=== PATIENT | male | born 1970 | race Caucasian/White ===

== ENCOUNTER 2017-05-10 00:04 | Emergency (ER) | payer OTHER ==
[2017-05-10 00:07] VITALS: BP 203/108; PULSE 75; RESP 16; TEMP 98.3; O2SAT 95
[2017-05-10] MEDS ORDERED: DEXAMETHASONE SOD PHOS 4 MG/ML VIAL IM ONE (01:45)
--- NOTE | 2017-05-10 01:47 | PD ---
HPI Chief Complaint: Injury Time Seen by Provider: 01:41 Travel History International Travel<30 days: No Contact w/Intl Traveler<30days: No Traveled to known affect area: No History of Present Illness HPI Patient comes in complaining of pain is left shoulder is been constant over the past 4 days and has moved into his left elbow and left wrist. Patient denies any trauma. Patient states pain began when he rolled over and turned his head to the left. Patient did take an Advil with minimal relief of symptoms. Pain is worse with certain movement of his left upper extremity. Denies any chest pain, shortness of breath, fevers, neck pain, back pain, numbness or tingling, loss change in bowel or bladder, trauma, or IV drug use. Describes pain as a burning like sensation in his joints. PFSH Past Medical History Medical History: Denies Significant Hx Diminished Hearing: No Past Surgical History Surgical History: No Previous Surgery Social History Alcohol Use: No Tobacco Use: Yes (1/2PPD ) Substance Use: No Allergies-Medications (Allergen,Severity, Reaction): Coded Allergies: No Known Allergies (Unverified , 05/10/17) Reported Meds & Prescriptions Reported Meds & Active Scripts Active Flexeril (Cyclobenzaprine HCl) 10 Mg Tab 10 Mg PO Q8HR PRN Do not drive or operate heavy machinery as medication can make you drowsy. Do not drink alcohol while on medication. Medrol Dosepak (Methylprednisolone) 4 Mg Dspk 4 Mg PO DIRECTED Per Pharmacist direction Review of Systems Except as stated in HPI: all other systems reviewed are Neg Physical Exam Narrative GENERAL: Well-developed, overly nourished, in no acute distress, and non-ill appearing. SKIN: Focused skin assessment warm and dry. HEAD: Atraumatic. Normocephalic. EYES: Pupils equal and round. EOMI. No scleral icterus. No injection or drainage. ENT: No nasal bleeding or discharge. Mucous membranes pink and moist. NECK: Trachea midline. Supple. No nuclear rigidity. CARDIOVASCULAR: Radial pulses 2+, intact, and equal bilaterally. Capillary refill less than 2 seconds. RESPIRATORY: No accessory muscle use. No respiratory distress. MUSCULOSKELETAL: No obvious deformities. No clubbing. No cyanosis. No edema. Full range of motion. Shoulder:FROM equal BL with passive flexion, extension, Abduction, Adduction, internal/external rotation, and pronation/supination. Sensation equal BL deltoid muscles. Pulses equal BL distal to injury. Capillary refill less than 2 seconds distal to injury and equal BL. FROM distal to injury and equal BL. Strength distal to injury equal BL. NV intact distal to injury equal BL. Flexion and extension of thumb equal BL. Equal strength and movement with abduction/adductions of BL fingers. Assessment Nurse strength equal BL. Negative Tinel and Phalen's test. Patient reports point tenderness over left anterior shoulder. NEUROLOGICAL: Awake and alert. No obvious cranial nerve deficits. Motor grossly within normal limits. Normal speech. PSYCHIATRIC: Appropriate mood and affect; insight and judgment normal. Data Data Last Documented VS Vital Signs Date Time Temp Pulse Resp B/P Pulse Ox O2 Delivery O2 Flow Rate FiO2 05/10/17 02:05 102 16 168/104 99 Room Air 05/10/17 00:07 98.3 Orders Dexamethasone Inj (Decadron Inj) (05/10/17 01:45) MDM Medical Decision Making Medical Screen Exam Complete: Yes Emergency Medical Condition: Yes Differential Diagnosis Radiculopathy, arthritis, fracture, strain, contusion, other Narrative Course There was no history of recent fall or trauma. There was no evidence to support atypical cardiac/angina as an etiology. There is also no evidence to suggest vascular pathology such as TAA or carotid dissection. No fevers or other evidence to suspect infectious processes, abscess, osteomyelitis etc. The patients neurological exam is normal with normal motor and sensory. There is no motor deficits reported or found, and no bowel or bladder incontinence or retention. I suspect the pain is mechanical in nature. Clinical suspicion, plan of care and management was discussed with the patient. The patient was instructed to follow up with their health care provider. The patient was also instructed to return if the pain worsened, changed, or developed weakness or bowel or bladder trouble. The patient agreed with plan. The patient was found during their evaluation to have elevated blood pressures. The patient has no prior history of hypertension. The patient has no symptoms as well. The patient denied headache, changes in vision, nausea, vomiting, dizziness, weakness or loss of sensation. The patient denied and chest, back or abdominal pain. The patient also denied any shortness of breath, dyspnea on exertion, orthopnea or PND. The patient denies any edema to extremities. The patients blood pressures at discharge were at an acceptable level. I discussed with the patient that the standard of care is to not initiate antihypertensive medications at this time and for them to follow up with a primary care physician for continued outpatient evaluation, establish diagnosis of hypertension and potential initiation of blood pressure medications. Return warnings were given to the patient and the patient agreed with plan of care. Patient in no obvious distress upon re-evaluation. Patient was asked if they wanted to speak to my attending, which the patient did not wish to do at this time. Any questions/concerns in reference to patient diagnosis/condition discussed and clarified prior to patient's discharge. Reinforced sheer importance of close follow up with patient's primary physician or primary care clinic. Instructed patient to return to ED immediately, if symptoms return/ worsen. Pt showed understanding of above instructions. Further instructions and recommendations were detailed in discharge paperwork. Pt ambulated without difficulty out of ED at discharge. Diagnosis Primary Impression: Left shoulder pain Qualified Code: M25.512 - Acute pain of left shoulder Additional Impression: Elevated blood pressure reading Patient Instructions: General Instructions Departure Forms: Work Release Special Instructions: No excessive use of left upper extremity until . Additional Instructions: Follow-up with your primary care physician in one to 5 days for reevaluation of your elevated blood pressure noted here today and/or orthopedic in 2-5 days for reevaluation of her left shoulder pain. Take all medication as prescribed. Return to the emergency department if symptoms get worse. Med/Other Pt SpecificInfo: Prescription(s) given Scripts Cyclobenzaprine (Flexeril)10 Mg Tab10 Mg PO Q8HR PRN (MUSCLE PAIN) #15 TAB Ref [address] heavy machinery as medication can make you drowsy. Do not drink alcohol while on medication. Prov:Shankar Lucia MD 05/10/17 Methylprednisolone Dosepak (Medrol Dosepak)4 Mg Dspk4 Mg PO DIRECTED #1 DSPK Ref 0 Per Pharmacist direction Prov:Shankar Lucia MD 05/10/17 Disposition: 01 DISCHARGE HOME Condition: Stable James Weems May 10, 2017 01:47
[2017-05-10] MEDS ORDERED: MEDR4PAK PO (01:49)
[2017-05-10] MEDS ORDERED: CYCL1TAB29 PO (01:49)
[2017-05-10 02:05] VITALS: BP 168/104; PULSE 102; RESP 16; O2SAT 99
== END 2017-05-10 02:59 | disposition home or self-care (01) ==
LOC: NEPD 00:04
DX: M25.512 Pain in left shoulder (principal); R03.0 Elevated blood-pressure reading, without diagnosis of hypertension; F17.200 Nicotine dependence, unspecified, uncomplicated
CPT/HCPCS: 96372; 99284; J1100